=== PATIENT | female | born 1985 | race Two or more races ===

== ENCOUNTER 2017-04-16 11:10 | Emergency (ER) | payer SELFPAY ==
[~2017-04-16] VITALS: Ht 167.6 cm; Wt 72.6 kg
[~2017-04-16 11:10] MED LIST: Haloperidol 5mg/ml Inj ONE
[2017-04-16] MEDS ORDERED: Haloperidol 5mg/ml Inj IM ONE (11:15)
[2017-04-16 11:45] LABS: BASOPHILS % (AUTO) 0.8 % (0.0-2.0); EOSINOPHILS % (AUTO) 0.2 % (0.0-3.0); LYMPHOCYTES % (AUTO) 20.7 % (20.0-45.0); MEAN CORPUSCULAR HEMOGLOBIN 30.3 PG (27.0-31.0); MEAN CORPUSCULAR HGB CONC 33.5 G/DL (32.0-36.0); MEAN CORPUSCULAR VOLUME 90 FL (80-99); MEAN PLATELET VOLUME 10.5 FL (6.5-10.1); NEUTROPHILS % (AUTO) 70.3 % (45.0-75.0); PLATELET COUNT 233 K/UL (150-450); RED BLOOD COUNT 4.42 M/UL (4.20-5.40); RED CELL DISTRIBUTION WIDTH 11.6 % (11.6-14.8); WHITE BLOOD COUNT 8.5 K/UL (4.8-10.8)
[2017-04-16 11:46] VITALS: BP 135/80
[2017-04-16 11:54] LABS: ANION GAP 10 mmol/L (5-15); CALCIUM 9.2 MG/DL (8.5-10.1); CARBON DIOXIDE 24 MMOL/L (21-32); CHLORIDE 105 MMOL/L (98-107); GLOMERULAR FILTRATION RATE > 60 mL/min (>60); POTASSIUM 3.3 MMOL/L (3.5-5.1); SODIUM 139 MMOL/L (136-145)
[2017-04-16 11:58] LABS: ACETAMINOPHEN < 2 MCG/ML (10-30); ALANINE AMINOTRANSFERASE 48 U/L (12-78); ALBUMIN/GLOBULIN RATIO 1.2 (1.0-2.7); ALCOHOL 3 mg/dL; ASPARTATE AMINO TRANSFERASE 21 U/L (15-37); TOTAL PROTEIN 7.7 G/DL (6.4-8.2)
[2017-04-16 13:29] LABS: APPEARANCE,URINE CLEAR; KETONES,URINE NEGATIVE (NEGATIVE); LEUKOCYTE ESTERASE ,URINE NEGATIVE (NEGATIVE); NITRITE,URINE NEGATIVE (NEGATIVE); PH,URINE 6.5 (4.5-8.0); PROTEIN,URINE NEGATIVE (NEGATIVE); UROBILINOGEN,URINE NORMAL MG/DL (0.0-1.0)
--- NOTE | 2017-04-16 14:46 | Emergency Room Report ---
History of Present Illness General Chief Complaint: Behavioral Complaint Source: Patient, EMS Present Illness Allergies: Coded Allergies: No Known Allergies (Unverified , 04/16/17) Patient History Past Medical History: psych hx Past Surgical History: none Pertinent Family History: none Social History: Denies: smoking, alcohol use, drug use Now: No Immunizations: UTD Reviewed Nursing Documentation: PMH: Agreed, PSxH: Agreed Nursing Documentation-PMH History Of Psychiatric Problem: Yes - BI-POLAR Review of Systems All Other Systems: negative except mentioned in HPI Physical Exam Vital Signs Date Time Temp Pulse Resp B/P (MAP) Pulse Ox O2 Delivery O2 Flow Rate FiO2 04/16/17 10:54 100.0 78 16 135/80 98 Room Air Sp02 EP Interpretation: reviewed, normal General Appearance: no apparent distress, alert, GCS 15, non-toxic Head: normocephalic Eyes: bilateral eye normal inspection, bilateral eye PERRL ENT: normal ENT inspection Neck: normal inspection Respiratory: normal inspection Cardiovascular #1: normal inspection Gastrointestinal: normal inspection Rectal: deferred Genitourinary: no CVA tenderness Musculoskeletal: normal inspection Neurologic: other - agitated/combative Psychiatric: other - agitated/combative Skin: normal inspection Lymphatic: normal inspection Medical Decision Making Diagnostic Impression: Primary Impression: Behavioral disorder Additional Impression: Bipolar affective disorder, currently manic, moderate ER Course Hospital Course 32-year-old female presents to ED for evaluation of erratic behavior and pressure to speech. History of bipolar Differential diagnoses include: Psychosis, EtOH, drug abuse Clinical course patient placed on stretcher. [employer] lead. After initial history and physical ordered labs, IV fluids, haldol Labs reviewed-electrolytes okay, no leukocytosis, hemoglobin/hematocrit stable, tox panel negative After Haldol patient is more alert and oriented. However showing signs of manic episode Evaluated by psychiatry Dr. Willis; agrees the patient is not a danger to herself or others. We obtained records from [facility] where patient used to be on Zyprexa and Depakote We will change patient to risperdol, continue the Depakote. Given risperdol, Depakote in ED, given Haldol deconate Sister states she will take the patient home. Will followup with psychiatry as outpatient i. I feel this is a highly complex case requiring extensive working including EKG/Rhythm strip, Xray/CT/US, Blood/urine lab work, repeat exams while in ED, and administration of strong opiates/narcotics for pain control, admission to hospital or close patient follow up. Diagnosis - behavioral disorder, bipolar manic Stable and discharged to home. Take meds as prescribed. Followup with PMD/ psychiatry. Return to ED if symptoms recur or worsen Labs Test 04/16/17 11:30 04/16/17 13:10 White Blood Count 8.5 K/UL (4.8-10.8) Red Blood Count 4.42 M/UL (4.20-5.40) Hemoglobin 13.4 G/DL (12.0-16.0) Hematocrit 40.0 % (37.0-47.0) Mean Corpuscular Volume 90 FL (80-99) Mean Corpuscular Hemoglobin 30.3 PG (27.0-31.0) Mean Corpuscular Hemoglobin Concent 33.5 G/DL (32.0-36.0) Red Cell Distribution Width 11.6 % (11.6-14.8) Platelet Count 233 K/UL (150-450) Mean Platelet Volume 10.5 FL (6.5-10.1) Neutrophils (%) (Auto) 70.3 % (45.0-75.0) Lymphocytes (%) (Auto) 20.7 % (20.0-45.0) Monocytes (%) (Auto) 8.0 % (1.0-10.0) Eosinophils (%) (Auto) 0.2 % (0.0-3.0) Basophils (%) (Auto) 0.8 % (0.0-2.0) Sodium Level 139 MMOL/L (136-145) Potassium Level 3.3 MMOL/L (3.5-5.1) Chloride Level 105 MMOL/L (98-107) Carbon Dioxide Level 24 MMOL/L (21-32) Anion Gap 10 mmol/L (5-15) Blood Urea Nitrogen 13 mg/dL (7-18) Creatinine 1.0 MG/DL (0.55-1.30) Estimat Glomerular Filtration Rate > 60 mL/min (>60) Glucose Level 101 MG/DL (74-106) Calcium Level 9.2 MG/DL (8.5-10.1) Total Bilirubin 0.7 MG/DL (0.2-1.0) Aspartate Amino Transf (AST/SGOT) 21 U/L (15-37) Alanine Aminotransferase (ALT/SGPT) 48 U/L (12-78) Alkaline Phosphatase 60 U/L (46-116) Total Protein 7.7 G/DL (6.4-8.2) Albumin 4.2 G/DL (3.4-5.0) Globulin 3.5 g/dL Albumin/Globulin Ratio 1.2 (1.0-2.7) Salicylates Level 0.6 ug/mL (2.8-20) Acetaminophen Level < 2 MCG/ML (10-30) Serum Alcohol 3 mg/dL Urine Color Pale yellow Urine Appearance Clear Urine pH 6.5 (4.5-8.0) Urine Specific [place] 1.010 (1.005-1.035) Urine Protein Negative (NEGATIVE) Urine Glucose (UA) Negative (NEGATIVE) Urine Ketones Negative (NEGATIVE) Urine Occult Blood Negative (NEGATIVE) Urine Nitrite Negative (NEGATIVE) Urine Bilirubin Negative (NEGATIVE) Urine Urobilinogen Normal MG/DL (0.0-1.0) Urine Leukocyte Esterase Negative (NEGATIVE) Urine HCG, Qualitative Negative Urine Opiates Screen Negative (NEGATIVE) Urine Barbiturates Screen Negative (NEGATIVE) Phencyclidine (PCP) Screen Negative (NEGATIVE) Urine Amphetamines Screen Negative (NEGATIVE) Urine Benzodiazepines Screen Negative (NEGATIVE) Urine Cocaine Screen Negative (NEGATIVE) Urine Marijuana (THC) Screen Negative (NEGATIVE) Last Vital Signs Date Time Temp Pulse Resp B/P (MAP) Pulse Ox O2 Delivery O2 Flow Rate FiO2 04/16/17 11:46 100.0 99 16 135/80 98 Room Air Status: improved Disposition: HOME, SELF-CARE Condition: Stable Scripts Risperidone* (RISPERDAL*) 2 Mg Tablet 2 MG ORAL DAILY, #30 TAB 0 Refills Prov: Dale Hall 04/16/17 Divalproex Sodium* (DEPAKOTE ER*) 500 Mg Tab.er.24h 1000 MG ORAL EVERY 12 HOURS, #30 TAB Prov: Dale Hall 04/16/17 Referrals: NOT CHOSEN FAN/,REFERRING (PCP) HANY BARROS M.D. Apr 16, 2017 14:46
[2017-04-16] MEDS ORDERED: RISPERDAL2 MG ORAL (15:11)
[2017-04-16] MEDS ORDERED: DEPAKOTE ER500 MG ORAL (15:11)
[2017-04-16] MEDS ORDERED: Haloperidol Decanoate 50mg Inj IM ONE (15:15)
[2017-04-16] MEDS ORDERED: Depakote ER 500mg tab ORAL ONE (15:15)
--- NOTE | 2017-04-16 16:16 | Consultation ---
History of Present Illness General Date patient seen: Apr 16, 2017 Chief Complaint: Behavioral Complaint Present Illness HPI 32 yo female with hx of bipolar d/o with psychotic fx, pw pressured speech and agitation, disorganized speech. the pt has been calm most of her stay in er and didn't endorse si/hi. Allergies: Coded Allergies: No Known Allergies (Unverified , 04/16/17) Medication History Scheduled Divalproex Sodium* (Depakote Er*), 1,000 MG ORAL EVERY 12 HOURS Risperidone* (Risperdal*), 2 MG ORAL DAILY Patient History History Provided By: Patient, Medical Record, PMD Healthcare decision maker Resuscitation status Advanced Directive on File Past Medical/Surgical History Past Medical/Surgical History: (1) Behavioral disorder Review of Systems Psychiatric: Reports: see HPI, prior hx, anxiety, depressed feelings, emotional problems, hallucinations Physical Exam General Appearance: no apparent distress, alert Neurologic: alert, oriented x 3, responsive Last 24 Hour Vital Signs Date Time Temp Pulse Resp B/P (MAP) Pulse Ox O2 Delivery O2 Flow Rate FiO2 04/16/17 11:46 100.0 99 16 135/80 98 Room Air 04/16/17 10:54 100.0 78 16 135/80 98 Room Air Intake and Output 04/16/17 04/17/17 19:00 07:00 Intake Total 120 ml Balance 120 ml Intake Oral 120 ml Laboratory Tests Test 04/16/17 11:30 04/16/17 13:10 White Blood Count 8.5 K/UL (4.8-10.8) Red Blood Count 4.42 M/UL (4.20-5.40) Hemoglobin 13.4 G/DL (12.0-16.0) Hematocrit 40.0 % (37.0-47.0) Mean Corpuscular Volume 90 FL (80-99) Mean Corpuscular Hemoglobin 30.3 PG (27.0-31.0) Mean Corpuscular Hemoglobin Concent 33.5 G/DL (32.0-36.0) Red Cell Distribution Width 11.6 % (11.6-14.8) Platelet Count 233 K/UL (150-450) Mean Platelet Volume 10.5 FL (6.5-10.1) H Neutrophils (%) (Auto) 70.3 % (45.0-75.0) Lymphocytes (%) (Auto) 20.7 % (20.0-45.0) Monocytes (%) (Auto) 8.0 % (1.0-10.0) Eosinophils (%) (Auto) 0.2 % (0.0-3.0) Basophils (%) (Auto) 0.8 % (0.0-2.0) Sodium Level 139 MMOL/L (136-145) Potassium Level 3.3 MMOL/L (3.5-5.1) L Chloride Level 105 MMOL/L (98-107) Carbon Dioxide Level 24 MMOL/L (21-32) Anion Gap 10 mmol/L (5-15) Blood Urea Nitrogen 13 mg/dL (7-18) Creatinine 1.0 MG/DL (0.55-1.30) Estimat Glomerular Filtration Rate > 60 mL/min (>60) Glucose Level 101 MG/DL (74-106) Calcium Level 9.2 MG/DL (8.5-10.1) Total Bilirubin 0.7 MG/DL (0.2-1.0) Aspartate Amino Transf (AST/SGOT) 21 U/L (15-37) Alanine Aminotransferase (ALT/SGPT) 48 U/L (12-78) Alkaline Phosphatase 60 U/L (46-116) Total Protein 7.7 G/DL (6.4-8.2) Albumin 4.2 G/DL (3.4-5.0) Globulin 3.5 g/dL Albumin/Globulin Ratio 1.2 (1.0-2.7) Salicylates Level 0.6 ug/mL (2.8-20) L Acetaminophen Level < 2 MCG/ML (10-30) L Serum Alcohol 3 mg/dL Urine Color Pale yellow Urine Appearance Clear Urine pH 6.5 (4.5-8.0) Urine Specific [place] 1.010 (1.005-1.035) Urine Protein Negative (NEGATIVE) Urine Glucose (UA) Negative (NEGATIVE) Urine Ketones Negative (NEGATIVE) Urine Occult Blood Negative (NEGATIVE) Urine Nitrite Negative (NEGATIVE) Urine Bilirubin Negative (NEGATIVE) Urine Urobilinogen Normal MG/DL (0.0-1.0) Urine Leukocyte Esterase Negative (NEGATIVE) Urine HCG, Qualitative Negative Urine Opiates Screen Negative (NEGATIVE) Urine Barbiturates Screen Negative (NEGATIVE) Phencyclidine (PCP) Screen Negative (NEGATIVE) Urine Amphetamines Screen Negative (NEGATIVE) Urine Benzodiazepines Screen Negative (NEGATIVE) Urine Cocaine Screen Negative (NEGATIVE) Urine Marijuana (THC) Screen Negative (NEGATIVE) Height (Feet): 5 Height (Inches): 6.00 Weight (Pounds): 160 Assessment/Plan Status: stable Assessment/Plan bipolar d/o depakote er 1000mg qhs risperdal 3mg qhs haldol dec 50mg IM dc to sister Maxwell Willis M.D. Apr 16, 2017 16:16
[2017-04-16 16:25] VITALS: BP 130/76
[2017-04-16 16:31] VITALS: BP 130/76
== END 2017-04-16 16:33 | disposition home or self-care (01) ==
LOC: EDBD 11:10 → EMR 12:00
DX: F31.12 Bipolar disorder, current episode manic without psychotic features, moderate (principal)
CPT/HCPCS: 36415; 80053; 80307; 81003; 81025; 85025; 96372; 96374; 99284; G0480; J1630; J1631; 80329